=== PATIENT | female | born 1955 | race African-American/Black ===

== ENCOUNTER → 2016-10-06 | Outpatient (CLI) | payer OTHER ==
--- NOTE | ~2016-10-06 | MY11 ---
[facility] A Service of [facility] RADIOLOGY TEXT RESULTS PATIENT: RINA BECKETT LOCATION: [facility] : 51 UNIT #: [id number] AGE: [address]: GIANA KENNY APRN SEX: F ORDER DR: [id number] [facility] [address] [place], [place] [address] [id number] O MR#: [id number] Acc #: [id number] NAME: RINA BECKETT : 1955 SEX: F STUDY DATE/TIME: 10/06/2016 16:29 UNIT: [facility] ROOM: STUDY DESCRIPTION: MY Mammogram Screening Dig Duran Attending Physician: Giana Kenny Aprn Ordering Physician: Giana Kenny Aprn Primary Care Physician: Giana Kenny Aprn MEDICAL IMAGING REPORT This report is preliminary unless electronic signature is present EXAM Digital screening mammogram, 10/06/2016 HISTORY 61-year-old woman no risk elevation. Prior excisional biopsy right breast. Annual screening. COMPARISON 04/06/2005, 05/19/2012, 06/14/2014 FINDINGS Digital imaging of each breast was completed utilizing a two-view examination of each breast in craniocaudal and mediolateral-oblique projections. Review and interpretation of digital mammograms include a second review in conjunction with FDA-approved CAD device. There is a normal parenchymal presentation bilaterally consistent with the patient's age. There are no breast masses imaged and no parenchymal asymmetry is visualized. There are no suspicious microcalcifications and I see no focal architectural disturbance. IMPRESSION Negative screening digital mammogram. One-year followup recommended. Patients over the age of 40 are entered into a reminder system with target due date for the next mammogram. A result letter will also be sent to the patient. BIRADS: 1 Negative ADDENDUM Breast parenchyma is fatty replaced. Dictated by... [facility] A Service of [facility] RADIOLOGY TEXT RESULTS PATIENT: RINA BECKETT LOCATION: [facility] : 51 UNIT #: [id number] AGE: [address]: GIANA KENNY APRN SEX: F ORDER DR: Cesar Becerra M.D. THIS IS AN ELECTRONICALLY VERIFIED REPORT Cesar Becerra M.D. at 10/07/2016 11:19 AM Ramy TD: 10/07/2016 08:48 JOB #: [id number] MEDICAL IMAGING REPORT Page 1 of 1 COPY
== END | disposition home or self-care (01) ==
LOC: CWCC 16:10
DX: Z12.31 Encounter for screening mammogram for malignant neoplasm of breast (principal); R92.8 Other abnormal and inconclusive findings on diagnostic imaging of breast
CPT/HCPCS: G0202